=== PATIENT | male | born 1955 | race Caucasian/White ===

== ENCOUNTER 2016-09-25 08:36 | Outpatient (CLI) | payer OTHER ==
[2016-09-25 11:07] LABS: PT - PROTHROMBIN TIME 54.7 secs (9.9-12.6)
[2016-09-25 11:35] LABS: INR 4.8 (0.8-1.2)
== END 2016-09-25 08:37 | disposition home or self-care (01) ==
LOC: LAB.F 08:36
PROVIDERS: ATTEND Orthopaedic Surgery
DX: Z79.01 Long term (current) use of anticoagulants (principal); I23.6 Thrombosis of atrium, auricular appendage, and ventricle as current complications following acute myocardial infarction
CPT/HCPCS: 36415; 85610

== ENCOUNTER 2016-10-02 08:05 | Outpatient (CLI) | payer OTHER ==
[2016-10-02 10:47] LABS: INR 3.8 (0.8-1.2); PT - PROTHROMBIN TIME 43.3 secs (9.9-12.6)
== END 2016-10-02 08:06 | disposition home or self-care (01) ==
LOC: LAB.F 08:05
PROVIDERS: ATTEND Pharmacist
DX: I23.6 Thrombosis of atrium, auricular appendage, and ventricle as current complications following acute myocardial infarction (principal); Z79.01 Long term (current) use of anticoagulants
CPT/HCPCS: 36415; 85610

== ENCOUNTER 2016-10-26 11:07 | Outpatient (CLI) | payer OTHER | END 2016-10-26 11:08 | disposition home or self-care (01) | LOC: LAB.F 11:07 | PROVIDERS: ATTEND Pharmacist | DX: Z79.01 Long term (current) use of anticoagulants (principal) | CPT/HCPCS: 85610 ==

== ENCOUNTER 2016-12-04 11:03 | Outpatient (CLI) | payer OTHER ==
[2016-12-04 18:31] LABS: INR 2.5 (0.8-1.2); PT - PROTHROMBIN TIME 28.1 secs (9.9-12.6)
== END 2016-12-04 11:04 | disposition home or self-care (01) ==
LOC: LAB.F 11:03
PROVIDERS: ATTEND Pharmacist
DX: Z79.01 Long term (current) use of anticoagulants (principal)
CPT/HCPCS: 36415; 85610

== ENCOUNTER 2016-12-05 12:44 | Emergency (ER) | payer OTHER ==
[2016-12-05 12:52] VITALS: BP 141/83
[2016-12-05] MEDS ORDERED: BUFFERED LIDOCAINE 10 ML SYRINGE ONE (15:16)
[2016-12-05] MEDS ORDERED: TETANUS/DIPHTHERIA/PERTUSSIS 0.5 ML SYRINGE IM ONE ×2 (15:23→16:01)
--- NOTE | 2016-12-05 15:26 | ED Physician Documentation ---
PD HPI UPPER EXT INJURY - Stated complaint Stated Complaint: LT THUMB CUT - Chief complaint Chief Complaint: Ext Problem - History obtained from History obtained from: Patient - History of Present Illness Location: Other (Cut the tip of his left thumb on a broken wine glass this morning while doing dishes, tetanus is not up-to-date.) Review of Systems Constitutional: reports: Reviewed and negative Cardiac: reports: Reviewed and negative Respiratory: reports: Reviewed and negative PD PAST MEDICAL HISTORY - Past Medical History Past Medical History: No - Present Medications Home Medications: Ambulatory Orders Medication Instructions Recorded Confirmed Carvedilol 1.25 mg PO 12/05/16 Ramipril 1.25 mg PO 12/05/16 Rosuvastatin Calcium [Crestor] 12/05/16 Warfarin Sodium [Coumadin] 6 mg PO 12/05/16 - Allergies Allergies/Adverse Reactions: Allergies Allergy/AdvReac Type Severity Reaction Status Date / Time No Known Drug Allergies Allergy Verified 12/05/16 12:51 - Social History Does the pt smoke?: No Smoking Status: Never smoker PD ED PE NORMAL - Vitals Vital signs reviewed: Yes - General General: Alert and oriented X 3, No acute distress - Extremities Extremities: Other (On the pulp of the left thumb there is a 1 cm clean laceration without nailbed involvement.) - Neuro Neuro: Alert and oriented X 3, Normal speech - Psych Psych: Normal mood, Normal affect Results - Vitals Vitals: Vital Signs - 24 hr 12/05/16 12:47 Temperature 36.1 C L Heart Rate 54 L Respiratory 16 Rate Blood Pressure 141/83 H O2 Saturation 100 Oxygen O2 Source Room air Procedures - Laceration (location) Left thumb Length in cm: 1 Wound type: Linear Neurovascular status: Sensory intact, Motor intact, Vascular intact Anesthesia: OTH (Digital block with 1% buffered lidocaine) Wound Preparation: Irrigated copiously NS Skin layer closure: Nylon, Interrupted, Size #-0 - enter number (5-0), Sutures - enter # (3) Other: Patient tolerated well, No complications, Neurovascular intact, Tetanus booster given Complexity: Simple Departure - Departure Disposition: 01 Home, Self Care Clinical Impression: Laceration of left thumb Qualifiers: Encounter type: initial encounter Damage to nail status: without damage Foreign body presence: without foreign body Qualified Code(s): S61.012A - Laceration without foreign body of left thumb without damage to nail, initial encounter Condition: Good Record reviewed to determine appropriate education?: Yes Instructions: ED Laceration Hand Follow-Up: [facility] [Provider Group] [facility] [Provider Group] [facility] [place] [Provider Group] Comments: Come back for any signs of infection which would include: Redness, swelling, drainage, increased pain, or fevers. Follow-up with your physician in 10-14 days for suture removal. Your blood pressure was elevated today on check into the emergency department. This does not mean that you have hypertension, it is a common phenomenon to come to the emergency department and have elevated blood pressure. I recommend that she see your primary care physician within the week to have it rechecked when you are feeling better.
== END 2016-12-05 16:01 | disposition home or self-care (01) ==
LOC: ED 12:44
DX: S61.012A Laceration without foreign body of left thumb without damage to nail, initial encounter (principal); W25.XXXA Contact with sharp glass, initial encounter; Y93.G1 Activity, food preparation and clean up; Y92.010 Kitchen of single-family (private) house as the place of occurrence of the external cause; R03.0 Elevated blood-pressure reading, without diagnosis of hypertension; Z23 Encounter for immunization
CPT/HCPCS: 12001; 90471; 99282; 99283

== ENCOUNTER 2017-08-22 08:04 | Outpatient (CLI) | payer BC ==
[2017-08-22 11:59] LABS: INR 3.5 (0.8-1.2); PT - PROTHROMBIN TIME 37.9 secs (9.9-12.6)
== END 2017-08-22 08:05 | disposition home or self-care (01) ==
LOC: LAB.F 08:04
PROVIDERS: ATTEND Pharmacist
DX: Z79.01 Long term (current) use of anticoagulants (principal)
CPT/HCPCS: 36415; 85610